=== PATIENT | male | born 1985 | race Caucasian/White ===

== ENCOUNTER 2023-12-19 05:47 | Emergency (ER) | payer OTHER, SELFPAY ==
[2023-12-19 05:51] VITALS: BP 142/79; PULSE 58; RESP 16; TEMP 37; O2SAT 100
--- NOTE | 2023-12-19 05:54 | ED.GENADUL_ITS ---
Discharge Plan Disposition Patient Disposition: Home Condition: Good Discharge Details Clinical Impression: Ankle bruise Primary Care Provider: Unknown,Unknown ED Provider: Channing Campbell Medroxie and New Rx's Prescriptions: No Action amlodipine 2.5 mg tablet 2.5 mg PO DAILY Discharge Instructions Additional Instructions: You were seen in the ED for ankle swelling and bruising as well as leg pain. Your laboratory studies are reassuring. May continue to use ice as needed for the swelling and bruising. Follow-up with primary care in 1 to 2 weeks if continued issues. Return to ED for significantly worsening pain, swelling, chest pain, syncope, shortness of breath. Discharge Data Discharge Date/Time-TO BE ENTERED AT DEPARTURE: 12/19/23 07:52 HPI General Mode of arrival: ambulatory . Date/Time Provider Initiated Documentation: 12/19/23 05:51 . Limitations to Documentation: no limitations . Information obtained by: patient and RN notes reviewed . HPI Narrative: Patient presents to ED with concern for blood clot in his left leg. Patient has no previous history of clots. He is otherwise healthy other than some high blood pressure. He has been doing a lot of hiking and biking while visiting up here. Denies any discrete injury but has swelling and bruising to his left ankle region. Has had pain in the upper left calf as well as developing pain in the left medial thigh. Denies any history of bruising or bleeding. Again denies any injury to the left ankle. Denies any chest pain or shortness of prisca ath. Related Data Home Medications ?Medication ?Instructions ?Recorded ?Confirmed amlodipine 2.5 mg tablet 2.5 mg PO DAILY 12/19/23 12/19/23 Allergies Allergy/AdvReac Type Severity Reaction Status Date / Time amoxicillin AdvReac Intermediate Other (See Verified 12/19/23 07:03 Comment) Review of Systems Narrative: Per HPI Exam Narrative Exam Narrative: Const: WDWN male in NAD. VS per triage. HEENT: NC/AT. Normal facial exam. Neck: Supple. Trachea midline. Lungs: Normal respiratory effort. Cor: RRR. Good DP pulses. Neuro: A+O x 3. Normal speech, mentation, gait. Cranial nerves II - XII grossly intact. No gross motor or sensory deficit. Ext: No C/C/E. No calf tenderness. Left ankle somewhat swollen with bruising inferior to the medial malleolus. No tenderness appreciated. Medical Decision Making Patient presenting to ED with concern for blood clot as well as atraumatic bruising and swelling to the left ankle. He is neurovascularly intact. Good DP pulses bilaterally. No tenderness involving the left ankle, left calf, left thigh. No erythema or warmth. Patient is low risk for DVT per Wells criteria. Will obtain D-dimer for screening. Due to the bruising which patient states is atraumatic will check coags and platelets as well. Overall, suspect the pains as well as swelling and bruising is related to the hiking and biking that he has been doing over the last week. CBC with normal platelets. Coags normal. D-dimer normal. Patient reassured. Return precautions provided. Lab Data Lab results reviewed: Yes I reviewed the patient's lab results. PFSH All Active Problems (Updated 12/19/23 @ 07:01 by Channing Campbell MD) Ankle bruise (Acute) Medical History HTN (hypertension) Social History Smoking/Tobacco Use Status: Never Smoking risk assessment performed?: Yes Alcohol Intake: never Drug use: Never Substance use type: does not use
[2023-12-19 06:22] LABS: HCT 42.1 % (40.0-50.0); HGB 14.4 g/dL (13.5-17.5); MCH 30.6 pg (27.0-33.0); MCHC 34.2 % (32.0-36.0); MCV 89 fL (80-95); MPV 9.8 fL (8.0-11.0); Platelet Count 201 10^3/uL (130-400); RBC 4.71 10^6/uL (4.36-5.78); RDW 12.5 % (11.8-14.1); RDW-SD 41.3 fL; WBC 4.06 10^3/uL (4.4-10.8)
[2023-12-19 06:55] LABS: D-Dimer 383 ng/mlFEU (<500)
[2023-12-19 07:54] LABS: PTT Activated 26.3 sec (23.6-32.8)
[2023-12-19 08:04] LABS: Prothrombin Time 9.7 sec (9.1-11.1)
== END 2023-12-19 07:52 | disposition home or self-care (01) ==
LOC: ER 07:31
PROVIDERS: Emergency Provider Emergency Medicine
DX: S90.02XA Contusion of left ankle, initial encounter (principal); I10 Essential (primary) hypertension; X58.XXXA Exposure to other specified factors, initial encounter
CPT/HCPCS: 85027; 99283; 85379; 85610; 85730